=== PATIENT | female | born 1980 | race Caucasian/White ===

== ENCOUNTER 2017-08-22 03:35 | Emergency (ER) | payer SELFPAY ==
--- NOTE | 2017-08-22 03:51 | ED Physician Documentation ---
General Adult - HISTORIAN Historian: patient - HPI Stated Complaint: mult issues, finger fx, tick bite, MS Chief Complaint: General Adult Onset: days ago Timing: still present Severity: moderate Further Comments: yes (Pt is a 37 yo homeless female who states that she has MS and hasn't been taking her meds. Pt requests a steroid injection. Pt also has poison emily and says that the steroid shot would serve 2 purpsoes. Pt fell a few days ago and believes she fractured her R ring finger. Finger is swollen. Pt also has an insect bite, which she says is a tick bite, that she noticed about 24 hrs ago.) - ROS CONST: no problems EYES/ENT: none CVS/RESP: none GI/: none MS/SKIN/LYMPH: other ("tick bite") NEURO/PSYCH: anxiety - PAST HX Past History: other (anxiety, depression, HTN, MS) Allergies/Adverse Reactions: Allergies Allergy/AdvReac Type Severity Reaction Status Date / Time ampicillin Allergy Unknown Verified 08/22/17 04:04 Home Medications: Ambulatory Orders Medication Instructions Recorded Atenolol [Tenormin] 100 mg PO DAILY 08/22/17 Cyclobenzaprine HCl [Flexeril] 5 mg PO TID 08/22/17 Hydrocodone/Acetaminophen [Vicodin 1 each PO Q6H PRN 08/22/17 5-300 mg Tablet] predniSONE [Deltasone] 20 mg PO QD 08/22/17 - SOCIAL HX Smoking History: cigarettes Drug Use: marijuana - FAMILY HX Family History: No - REVIEWED ASSESSMENTS Nursing Assessment Reviewed: Yes Vitals Reviewed: Yes Progress - Progress Progress: X-ray R ring finger: Comminuted fracture of the right fourth finger middle phalanx with displacement, shortening, and mild dorsal angulation. Depo-Medrol 80 mg IM for poison emily (also off meds for MS) Dx Finger Fracture Follow up with orthopedic doctor as soon as possible. You may follow up at [facility] Tel. [phone] (ask for orthopedic clinic), or at [facility] Tel. [phone]. Dx Tick Bite Rx Amoxicillin 500 mg. Take one every 8 hrs for 14 days. Dx Yeast infection. Diflucan 150 mg. Take one by mouth one time; repeat after one week. Dx Anxiety Rx Ativan 0.5 mg. Take one every 8 hrs as needed for anxiety. Follow up with primary provider in the next week. General Adult Physical Exam - PHYSICAL EXAM GENERAL APPEARANCE: mild distress EENT: pharynx normal NECK: normal inspection, supple RESPIRATORY: no resp distress, chest non-tender, breath sounds normal CVS: reg rate & rhythm, heart sounds normal ABDOMEN: soft, no organomegaly, normal bowel sounds BACK: normal inspection, no CVA tenderness SKIN: other (R ring finger swelling; rash on upper and lower extremities c/q poison emily) EXTREMITIES: other (swelling of R ring finger; decreased range of motion at PIP) NEURO: oriented X3, motor nml, sensation nml, other (anxious) Discharge Clincal Impression: R ring finger fracture, Yeast cystitis, Anxiety, MS, poison emily Tick bite Qualifiers: Encounter type: initial encounter Qualified Code(s): W57.XXXA - Bitten or stung by nonvenomous insect and other nonvenomous arthropods, initial encounter Referrals: Primary Doctor,No [Primary Care Provider] - Condition: Stable Disposition: 01 HOME, SELF-CARE Decision to Admit: NO Decision Time: 05:10
[2017-08-22] MEDS: methylPREDNISolone ACETATE 80 MG/ML VIAL IM STA (04:16)
[2017-08-22] MEDS: LORazepam 1 MG TABLET PO ONE (04:29)
[2017-08-22] MEDS: FAMOTIDINE/PF 20 MG/2 ML VIAL IVP ONE (04:58)
[2017-08-22 05:42] VITALS: BP 138/90
--- NOTE | 2017-08-22 05:49 | Diagnostic Imaging Report ---
HAMLET GUZMÁN [facility] [address] [facility] [address] [id number] Report Submission Date: Aug 22, 2017 4:38:32 AM CDT Patient Study Name: JEANMARIE JACINTO Date: Aug 22, 2017 4:17:26 AM CDT Modality Type: DX Gender: F Description: UPPER EXTREMITY : 76 Institution: [facility] Physician: HAMLET GUZMÁN HISTORY: 37-year-old female with right fourth finger pain after injury 8 days ago. COMPARISON: None available. TECHNIQUE: Three views of the right fourth finger were performed. IMPRESSION: Study positive for comminuted fracture of the right fourth finger middle phalanx with displacement, shortening, and mild dorsal angulation. Electronically signed on Aug 22, 2017 4:38:32 AM CDT by: Ata POMPA
[2017-08-22 08:40] LABS: APPEARANCE,URINE CLEAR (CLEAR); COLOR,URINE YELLOW (YELLOW); OCCULT BLOOD,URINE TRACE-INTACT (NEGATIVE); UROBILINOGEN URINE 0.2 Eu (0.2-1.0)
== END 2017-08-22 05:30 | disposition home or self-care (01) ==
LOC: ED 03:35
DX: S62.604A Fracture of unspecified phalanx of right ring finger, initial encounter for closed fracture (principal); B37.41 Candidal cystitis and urethritis; F41.9 Anxiety disorder, unspecified; G35 Multiple sclerosis; L23.7 Allergic contact dermatitis due to plants, except food; W57.XXXA Bitten or stung by nonvenomous insect and other nonvenomous arthropods, initial encounter; Y92.9 Unspecified place or not applicable; Y93.9 Activity, unspecified; Y99.9 Unspecified external cause status
CPT/HCPCS: 73140; 81002; 81025; J1040; 96372; 99284

== ENCOUNTER 2017-08-29 04:59 | Emergency (ER) | payer SELFPAY ==
--- NOTE | 2017-08-29 05:26 | ED Physician Documentation ---
General Adult - HISTORIAN Historian: patient - HPI Stated Complaint: mult complaints, finger fx, yeast infection, abd wall abscess Chief Complaint: General Adult Onset: days ago (>7 days ago) Timing: still present Severity: moderate Further Comments: yes (Pt is a 37 yo female who was here one week ago with the same complaints. Pt had an insect bite on her abdomen, c/o a yeast infection, and had anxiety and a finger fracture. Pt was rx'd abx and diflucan, was given a splint for her finger fx and instructions for how to follow up with orthopedics. Pt filled none of her rx's and has not yet follow up for her finger fx which is now 2 weeks old. Pt is here requesting diflucan and a new splint. The insect bite on her abd has now become a small abscess, but she will not allow it to be lanced.) - ROS CONST: no problems EYES/ENT: none CVS/RESP: none GI/: none MS/SKIN/LYMPH: other (abscess on abd wall; ) - PAST HX Past History: other (anxiety, depression, MS, HTN) Allergies/Adverse Reactions: Allergies Allergy/AdvReac Type Severity Reaction Status Date / Time ampicillin Allergy Mild Rash Verified 08/29/17 05:38 Home Medications: Ambulatory Orders Medication Instructions Recorded NK [NK] 08/29/17 - SOCIAL HX Smoking History: cigarettes - FAMILY HX Family History: No - VITAL SIGNS Vital Signs: Vital Signs Temp Pulse Resp BP Pulse Ox 138/90 08/22/17 05:35 - REVIEWED ASSESSMENTS Nursing Assessment Reviewed: Yes Vitals Reviewed: Yes Progress - Progress Progress: Solu-medrol 80 mg IM (pt off MS meds) Diflucan 150 mg po Rocephin 2 gms IM in ER for non-compliance with abx, also packets of Triple Abx given to pt in addition to renewed prescription (see below). re-splint R ring finger Rx Amoxicillin 500 mg. Take one by mouth every 8 hrs for 14 days. Rx Diflucan 150 mg. Take one tablet in one week. You must follow up with an orthopedic doctor about your fractured Right Ring finger. Call either: [facility] and ask for the orthopedic clinic. OR Call [facility] . General Adult Physical Exam - PHYSICAL EXAM GENERAL APPEARANCE: mild distress EENT: pharynx normal NECK: normal inspection, supple RESPIRATORY: no resp distress, chest non-tender, breath sounds normal CVS: reg rate & rhythm, heart sounds normal ABDOMEN: soft, no organomegaly, normal bowel sounds BACK: normal inspection, no CVA tenderness SKIN: other (3 cm indurated abscess, lower R abd wall at site of recent insect bite. (Pt will not allow lancing)) EXTREMITIES: non-tender, normal range of motion, no evidence of injury NEURO: oriented X3, motor nml, sensation nml Discharge Clincal Impression: MS, abd wall abscess, R ring finger fx Referrals: Primary Doctor,No [Primary Care Provider] - Condition: Stable Disposition: 01 HOME, SELF-CARE Decision to Admit: NO Decision Time: 06:17
[2017-08-29] MEDS ORDERED: FLUCONAZOLE 150 MG TABLET PO ONE (05:47)
[2017-08-29] MEDS: FLUCONAZOLE 150 MG TABLET PO SCH (05:54)
[2017-08-29] MEDS: methylPREDNISolone SOD SUCC 40 MG/ML VIAL IM ONE (05:54)
[2017-08-29] MEDS ORDERED: Lidocaine 1% 5ml(IM or SUTURE)(PAIN CLINIC) ONE (06:05)
[2017-08-29] MEDS ORDERED: cefTRIAXone SODIUM 1 GM VIAL ONE (06:05)
[2017-08-29 06:31] VITALS: BP 123/92
== END 2017-08-29 06:30 | disposition home or self-care (01) ==
LOC: ED 04:59
DX: G35 Multiple sclerosis (principal); L02.211 Cutaneous abscess of abdominal wall; S62.604A Fracture of unspecified phalanx of right ring finger, initial encounter for closed fracture; X58.XXXA Exposure to other specified factors, initial encounter; Y92.9 Unspecified place or not applicable; Y93.9 Activity, unspecified; Y99.9 Unspecified external cause status
CPT/HCPCS: 96374; 96375; 99284; J2920; J1030